=== PATIENT | female | born 2000 | race Caucasian/White ===

== ENCOUNTER 2019-01-08 12:33 | Outpatient (REF) | payer MEDICAID, SELFPAY ==
--- NOTE | 2019-01-08 12:00 | PAPFT_PTH ---
PATIENT: Deepti Choudhary LOC: [facility] U#:[id number] AGE/SX: 18/F ROOM: RE01/08/[address]: Krupa Yeboah : 2000 BED: DIS: 01/08/2019 SPEC #: [id number] RECD: 01/11/19 12:52 STATUS: GUERDA REQ #: [id number] YEMI: 01/08/19 12:[address]: Krupa Colunga DEPT: [facility] Cytology RECD BY: Philomena Medeiros ENTERED: 01/11/19 12:52 SP TYPE: PAPFT OTHR DR: Arleen Traylor Tissues: 1 - CX/ENDOCX FOR PAP SMEARS Procedures: PAP THIN PREP/[facility] Screening HPV DNA PROBE Comments: [id number]
[2019-01-12 07:16] LABS: Chlamydia Result Negative; GC Result Negative
== END 2019-01-08 12:53 ==
LOC: NCHCN 12:33
PROVIDERS: PCP Family Medicine; Visit Provider Nurse Practitioner Family
DX: N93.0 Postcoital and contact bleeding (principal); Z11.3 Encounter for screening for infections with a predominantly sexual mode of transmission; Z12.4 Encounter for screening for malignant neoplasm of cervix
CPT/HCPCS: 87491; 87591; 88142; 87624

== ENCOUNTER 2020-01-03 15:45 | Outpatient (REF) | payer OTHER, SELFPAY | END 2020-01-03 16:05 | LOC: NCHCN 15:45 | PROVIDERS: PCP Family Medicine; Visit Provider Nurse Practitioner Family | DX: R30.0 Dysuria (principal) | CPT/HCPCS: 87077; 87086 ==

== ENCOUNTER 2020-11-03 14:39 | Outpatient (REF) | payer OTHER, SELFPAY ==
[2020-11-05 11:08] LABS: COVID-19 RT-PCR UVMMC Result Negative (Negative)
== END 2020-11-03 14:40 | disposition home or self-care (01) ==
LOC: NCHCN 14:39
PROVIDERS: PCP Family Medicine; Visit Provider Registered Nurse
DX: Z20.822 Contact with and (suspected) exposure to COVID-19 (principal); J06.9 Acute upper respiratory infection, unspecified
CPT/HCPCS: U0003

== ENCOUNTER 2021-07-05 08:43 | Outpatient (REF) | payer SELFPAY ==
[2021-07-05 16:15] LABS: TSH 0.92 uIU/mL (0.36-3.74)
== END 2021-07-05 08:44 | disposition home or self-care (01) ==
LOC: NCHCN 08:43
PROVIDERS: PCP Family Medicine; Visit Provider Nurse Practitioner Family
DX: F41.8 Other specified anxiety disorders (principal)
CPT/HCPCS: 84443